=== PATIENT | male | born 1980 | race Caucasian/White ===

== ENCOUNTER → 2017-10-21 10:05 | Outpatient (POV) | payer BC, SELFPAY | PROVIDERS: Visit Provider Otolaryngology | DX: Z00.00 Encounter for general adult medical examination without abnormal findings (principal) ==

== ENCOUNTER 2024-02-13 19:41 | Emergency (ER) | payer BC, SELFPAY ==
[2024-02-13 19:42] VITALS: BP 146/88; PULSE 67; RESP 18; TEMP 36.8; O2SAT 99; BMI 23.6
[2024-02-13 20:00] VITALS: BP 133/86; PULSE 68; RESP 20; O2SAT 98
--- NOTE | 2024-02-13 20:02 | CT_ITS ---
PROCEDURE INFORMATION: Exam: CT Cervical Spine Without Contrast Exam date and time: 02/13/2024 8:10 PM Age: 44 years old Clinical indication: Other: Neurologic symtoms bl ue and le. Triceps atrophy; Prior surgery; Surgery date: 6+ months; Surgery type: 2016 TECHNIQUE: Imaging protocol: Computed tomography of the cervical spine without contrast. Radiation optimization: All CT scans at this facility use at least one of these dose optimization techniques: automated exposure control; mA and/or kV adjustment per patient size (includes targeted exams where dose is matched to clinical indication); or iterative reconstruction. COMPARISON: No relevant prior studies available. FINDINGS: Bones: Straightening of the curvature of the cervical spine is likely positional. Anterior fusion of C5-C7. Hardware appears intact. There is a chronic bony structure adjacent to the right C4-C5 facets. Multilevel degenerative changes of the cervical spine producing multiple levels of mild and moderate spinal canal stenosis. Mild left neural foraminal stenosis at C5-C7. Trachea: Tracheal diverticula. Lungs: Lung apices are normal. Soft tissues: Unremarkable. IMPRESSION: No acute fracture or malalignment of the cervical spine. No evidence of severe spinal stenosis.
--- NOTE | 2024-02-13 20:02 | CT_ITS ---
PROCEDURE INFORMATION: Exam: CT Lumbar Spine Without Contrast Exam date and time: 02/13/2024 8:20 PM Age: 44 years old Clinical indication: Other: Neurologic symtoms bl ue and le. Triceps atrophy TECHNIQUE: Imaging protocol: Computed tomography of the lumbar spine without contrast. Radiation optimization: All CT scans at this facility use at least one of these dose optimization techniques: automated exposure control; mA and/or kV adjustment per patient size (includes targeted exams where dose is matched to clinical indication); or iterative reconstruction. COMPARISON: CT THORACIC SPINE WO CON 13/02/2024 20:17 FINDINGS: Bones/joints: Chronic degenerative changes at L4-L5 produce mild spinal stenosis. Soft tissues: Unremarkable. IMPRESSION: No acute fracture or malalignment of the lumbar spine.
--- NOTE | 2024-02-13 20:02 | CT_ITS ---
PROCEDURE INFORMATION: Exam: CT Thoracic Spine Without Contrast Exam date and time: 02/13/2024 8:17 PM Age: 44 years old Clinical indication: Other: Neurologic symtoms bl ue and le. Triceps atrophy TECHNIQUE: Imaging protocol: Computed tomography of the thoracic spine without contrast. Radiation optimization: All CT scans at this facility use at least one of these dose optimization techniques: automated exposure control; mA and/or kV adjustment per patient size (includes targeted exams where dose is matched to clinical indication); or iterative reconstruction. COMPARISON: CT CERVICAL SPINE WO CON 13/02/2024 20:10 FINDINGS: Bones/joints: No acute fracture. Normal alignment. No significant disc bulge or herniation. No severe spinal canal stenosis. No significant neural foraminal narrowing. Soft tissues: Unremarkable. Gallbladder and biliary ducts: Gallbladder is absent. Kidneys and ureters: Nonobstructing right renal calculus. IMPRESSION: 1. No acute fracture or malalignment of the thoracic spine. No evidence of significant spinal stenosis. 2. Nonobstructing right renal calculus.
--- NOTE | 2024-02-13 20:07 | HMH.EDGENADL ---
Discharge Plan Disposition Patient Disposition: Home, Self-Care Prescriptions Prescriptions: New prednisone 20 mg tablet 60 mg PO DAILY 5 Days Qty: 15 0RF methocarbamol 750 mg tablet 1,500 mg PO TID 5 Days Qty: 30 0RF No Action calcium citrate 200 mg (950 mg) tablet 500 mg PO BID cetirizine [Zyrtec] 10 mg tablet 10 mg PO ONCE cyclobenzaprine 10 mg tablet 10 mg PO Q8H primidone 50 mg tablet 25 mg PO QHS glucosamine-chondroitin [Osteo Bi-Flex] 250-200 mg tablet 2 tab-cap PO QPC Referrals Follow up/Referrals: Myles Macias APRN [Primary Care Provider] - See instructions Activity Restrictions/Add. Instructions Additional Instructions/Restrictions: Follow-up with your family provider for this visit to the emergency department scheduling physical therapy prior to having MRI done. If you have any worsening of your condition or any other concerning signs or symptoms, return to the emergency department or your primary care doctor for further evaluation. Clinical Impressions Clinical Impression: Lumbar radiculopathy, Back pain Instructions Patient Instructions: DI for Low Back Pain Discharge ED Provider: Juve Robbins General Adult HPI General Chief complaint: Back Pain/Injury Stated complaint: back pain/bilateral leg numbness, unknown accident Time Seen by Provider: 02/13/24 19:49 Mode of Arrival: Wheelchair Source of Information: Patient Limitations: No Limitations Description of Symptoms (Recalled from ER Triage Doc. by RN): Patient to ED via wheelchair with complaints of mid to lower back pain that is radiating down left leg. Patient is very tearful during traige and rates pain 10/10. Associated leg cramps that patient self medicates with leg cramp medication, and ibuprofen. Patient previously seen by ortho in [place] for chronic issue x6 months. History of Present Illness HPI narrative: Please note that above description of symptoms, in this electronic medical record under categorization of recalled from ER triage doctor by RN are reflective of an initial nursing assessment, however, is not reflective of my full history and physical exam that was personally taken and clarified. Consequentially, this preceding description of symptoms, which may include the patient's categorized chief complaint in the EMR, do not reflect my personal clinical impression, and the ultimate description of history of present illness and patient stated complaints should be deferred to this section of the note. Unless stated otherwise or congruent with this section of the note, additional signs, symptoms, or incongruence should be interpreted as inaccurate with my clinical impression. Related Data Home Medications Medication Instructions Recorded Confirmed calcium citrate 200 mg (950 mg) 500 mg PO BID 10/10/17 tablet cetirizine 10 mg tablet (Zyrtec) 10 mg PO ONCE 10/10/17 cyclobenzaprine 10 mg tablet 10 mg PO Q8H 10/10/17 glucosamine-chondroitin 250 mg-200 2 tab-cap PO QPC 10/10/17 mg tablet (Osteo Bi-Flex) primidone 50 mg tablet 25 mg PO QHS 10/10/17 Previous Rx's Medication Instructions Recorded methocarbamol 750 mg tablet 1,500 mg (2 x 750 mg) PO TID 5 02/13/24 days #30 tabs prednisone 20 mg tablet 60 mg (3 x 20 mg) PO DAILY 5 days 02/13/24 #15 tabs Allergies Allergy/AdvReac Type Severity Reaction Status Date / Time gabapentin [From Neurontin] Allergy Verified 02/13/24 20:05 Penicillins Allergy Verified 02/13/24 20:05 [facility] Disclaimer: The information contained in this section may have been updated after the patient was seen, as this information can be updated by other users. Social History Smoking Status: Current some day smoker alcohol intake: current alcohol intake frequency: holidays/special occasions only counseling provided: none substance use type: marijuana current occupational status: employed Travel in the last 8 weeks: None household members: family ROS Obtained: Yes All systems reviewed & no additional complaints except as documented Physical Exam General General appearance: alert and in distress (Seem to be mild distress secondary to pain. Tearful) Head Head exam: atraumatic and normocephalic Eye Eye exam: Present normal appearance, PERRL and EOMI ENT ENT exam: Present mucous membranes moist Neck Neck exam: Present normal inspection, full ROM and trachea midline Respiratory Respiratory exam: Absent respiratory distress, wheezes, stridor, accessory muscle use or prolonged expiratory phase Cardiovascular Cardiovascular exam: Present normal rhythm Abdominal Exam Abdominal exam: Present soft; Absent distention, tenderness, guarding, rebound or rigidity Extremities Exam Extremities exam: Present other (Triceps atrophy on the right); Absent edema Back Exam Back exam: Present normal inspection, full ROM and tenderness (Mid thoracic and lumbar spines.) Neurological Exam Neurological exam: Present alert, oriented X3, CN II-XII intact and normal gait; Absent motor sensory deficit Skin Skin exam: Present warm and dry; Absent diaphoresis or erythema Medical Decision Making Medical Records Medical records reviewed: Yes I reviewed the patient's medical records. [place] Inquiry Pt receiving controlled substance: No [place] was queried for this patient: No Vital Signs: 02/13/24 19:42 02/13/24 20:00 02/13/24 20:30 Temperature 98.2 F Temperature Source Oral Pulse Rate 68 67 Pulse Rate [Right] 67 Respiratory Rate 18 20 20 Blood Pressure 133/86 123/82 Blood Pressure [Right Arm] 146/88 H Blood Pressure Mean 101 Blood Pressure Mean [Right Arm] 107 Blood Pressure Source [Right Arm] Automatic Cuff Blood Pressure Position [Right Arm] Supine 02 Sat by Pulse Oximetry 99 98 97 Oxygen Delivery Method Room Air Room Air Room Air 02/13/24 21:05 Temperature Temperature Source Pulse Rate 69 Pulse Rate [Right] Respiratory Rate 20 Blood Pressure 156/98 H Blood Pressure [Right Arm] Blood Pressure Mean Blood Pressure Mean [Right Arm] Blood Pressure Source [Right Arm] Blood Pressure Position [Right Arm] 02 Sat by Pulse Oximetry 100 Oxygen Delivery Method Room Air Lab Data Lab Results 02/13/24 20:30: Urine Color Yellow, Urine Appearance Clear, Urine pH 6.5, Ur Specific [place] 1.020, Urine Protein Negative, Urine Glucose (UA) Negative, Urine Ketones Negative, Urine Blood Negative, Urine Nitrate Negative, Urine Bilirubin Negative, Urine Urobilinogen 0.2, Ur Leukocyte Esterase Negative, Urine RBC None, Urine WBC Occasional, Ur Squamous Epith Cells Occasional, Urine Bacteria None Orders (Tests/Meds): ED MEDICATIONS Discontinued Medications Generic Name Dose Route Start Last Admin Trade Name Mikyq PRN Reason Stop Dose Admin Acetaminophen 1,000 mg 02/13/24 20:02 02/13/24 20:18 Acetaminophen 1,000mg/100ml Vial IV 02/13/24 20:03 1,000 mg ONCE ONE Administration Dexamethasone Sodium Phosphate 10 mg 02/13/24 20:02 02/13/24 20:14 Dexamethasone 4mg/Ml 1ml Vial IV 02/13/24 20:03 10 mg ONCE ONE Administration Ketorolac Tromethamine 15 mg 02/13/24 20:02 02/13/24 20:11 Ketorolac 30mg/Ml Vial IV 02/13/24 20:03 15 mg ONCE ONE Administration Methocarbamol 1,500 mg 02/13/24 20:02 02/13/24 20:11 Methocarbamol 500mg Tablet PO 02/13/24 20:03 1,500 mg ONCE ONE Administration Morphine Sulfate 4 mg 02/13/24 21:01 02/13/24 21:02 Morphine 4mg/Ml Syringe IV 02/13/24 21:02 4 mg ONCE ONE Administration ORDERS Category Date Time Status CT cervical spine wo con Stat Cat Scan 02/13/24 20:[address] lumbar spine wo con Stat Cat Scan 02/13/24 20:[address] thoracic spine wo con Stat Cat Scan 02/13/24 20:02 Completed UA [Urinalysis and Microscopic] Stat Lab 02/13/24 20:30 Completed Medical Decision Narrative: 44-year-old male history of degenerative disc disease, spinal osteoarthritis, chronic neck and back pain, cervical fusion presenting with acute on chronic neck and back pain. He states it has been getting worse over the last 6 months, got worse over the past 4 to 5 days to the point where he could not stand it anymore today. Came to the emergency department for further evaluation. States that he has had x-rays done, has never had CTs done. States that providers have tried giving him pain medications without formal imaging his back. Has never had an MRI. No bowel or bladder dysfunction, but states that both of his legs feel numb, bilateral arms and hands drop, feet invert and spasm, causing him significant discomfort. History was obtained via conversation with patient and . On arrival, patient hemodynamically stable, alert, oriented x4, appropriate, GCS 15, moving all extremities spontaneously, pupils equal and reactive to light. Full physical exam performed and significant for patient is in mild distress secondary to pain. Tearful. Ambulatory, no midline spinal abnormalities. Neurologically intact. He does have decreased sensation bilateral lower extremities without saddle anesthesia. Rectal tone deferred given patient has no history of bowel or bladder dysfunction is able to void spontaneously. Differential includes spinal osteoarthritis, radiculopathy, neuropathy, conus medullaris, cauda equina, among others. Patient was given Decadron, Toradol, acetaminophen, Robaxin for symptomatic management and correction of underlying abnormalities. Workup independently interpreted and significant for. See radiology read for full review of final results. PVR 0. CT scan of the cervical, thoracic, lumbar spines without acute spinal stenosis, bony abnormality, or other acute abnormality to explain patient's pain.On reevaluation, patient having emotional outbursts, lower extremity spasming, but standing up and ambulating in small steps around the room, bending over bed, intermittently putting his hand on his back. Because patient without red flag signs or symptoms and severe pain, admission for pain control was offered, but it was explained that he would not be receiving MRI here given no indication. Patient does not want narcotic medications because he does not think they are helping him. I agree. Patient opting for home-going with steroid and outpatient follow-up. I feel this is appropriate. Because patient at baseline without signs or symptoms of clinical decompensation, deemed appropriate for discharge. Results were relayed to patient who voiced understanding and were agreeable to outpatient management and follow up. I discussed my clinical impression with patient and answered all questions. At this time, the evidence for any other entities in the differential is insufficient to warrant any further testing or ED observation. This was explained as well. Advisory was given that persistent or worsening symptoms require further evaluation. I confirmed the understanding of this discussion. [place] disclaimer Much of this encounter note is an electronic stripper black and white spoken language to printed text. Electronic stripper black and white of the spoken language may permit errors. Although I have reviewed the note, some errors may still exist. Critical Care Critical Care Time Critical Care Time: No
[2024-02-13] MEDS: KETOROLAC 30MG/ML VIAL 15 MG IV (20:11)
[2024-02-13] MEDS: METHOCARBAMOL 500MG TABLET 1500 MG PO (20:11)
[2024-02-13] MEDS: DEXAMETHASONE 4MG/ML 1ML VIAL 10 MG IV (20:14)
[2024-02-13] MEDS: ACETAMINOPHEN 1,000MG/100ML VIAL 1000 MG IV (20:18)
[2024-02-13 20:30] VITALS: BP 123/82; PULSE 67; RESP 20; O2SAT 97
--- NOTE | 2024-02-13 20:39 | PC.NURSE ---
Patient bladder scanned and PVR 0ml.
[2024-02-13 20:48] LABS: Microscopic, Urine URINE MICROSCOPIC (MICROSCOPIC)
--- NOTE | 2024-02-13 20:50 | PC.NURSE ---
TRN enters room to patient moaning, and yelling loudly. He is gripping his left leg stating this is the problem and you all are not fixing it. TRN inquried to further explanation of what was bothering patient at this moment. He states that his left leg is cramping up due to his lower back pain. Patient reports that medication that have previously been given in ER thus far have not been effective. at bedside appears agitated with staff not doing anything for patient pain, and this is the worst its ever been. Dr. Robbins states that he is going to place additional order for morphine to assist with patient pain. Patient and family member updated on plan of care with TREY.
[2024-02-13 20:55] LABS: Appearance,Urine CLEAR (Clear); Bilirubin,Urine Negative (Negative); Blood, Urine Negative (Negative); Color,Urine YELLOW (Yellow); Glucose,Urine (UA) Negative (Negative); Ketones,Urine Negative (Negative); Leukocyte Esterase,Urine Negative (Negative); Nitrate,Urine Negative (Negative); PH,Urine 6.5 (5.0-8.5); Protein,Urine Negative (Negative); Urobilinogen,Urine 0.2 EU/dl (0.2)
[2024-02-13] MEDS: MORPHINE 4MG/ML SYRINGE 4 MG IV (21:02)
[2024-02-13 21:05] VITALS: BP 156/98; PULSE 69; RESP 20; O2SAT 100
[2024-02-13 21:10] LABS: Squamous Epithelial Cell,Urine Occasional #/hpf (0-5); WBC,Urine Occasional #/hpf (0-3)
[2024-02-13 21:31] VITALS: BP 161/137; PULSE 60; O2SAT 96
--- NOTE | 2024-02-13 21:40 | PC.NURSE ---
Physician at bedside.
[2024-02-13 22:04] VITALS: BP 106/53; PULSE 57; RESP 14; TEMP 36.8; O2SAT 97
== END 2024-02-13 22:05 | disposition home or self-care (01) ==
PROVIDERS: Emergency Provider Emergency Medicine; PCP Nurse Practitioner Family
DX: M54.16 Radiculopathy, lumbar region (principal); M54.50 Low back pain, unspecified; M62.838 Other muscle spasm
CPT/HCPCS: 72125; 72128; 72131; 81001; 96374; 96375; 99285; J0131; J1100; J1885; J2270

== ENCOUNTER 2024-03-17 15:48 | Outpatient (CLI) | payer BC, SELFPAY ==
--- NOTE | 2024-03-17 15:58 | MR_ITS ---
PROCEDURE INFORMATION: Exam: MR Lumbar Spine Without and With Contrast Exam date and time: 03/17/2024 4:20 PM Age: 44 years old Clinical indication: Low back pain; Additional info: Lbp TECHNIQUE: Imaging protocol: Magnetic resonance imaging of the lumbar spine without and with contrast. Contrast material: PROHANCE; Contrast volume: 15 ml; Contrast route: IV; COMPARISON: CT LUMBAR SPINE WO CON 02/13/2024 8:20 PM FINDINGS: Bones/joints: T12 vertebral body osseous hemangioma. Lipomatous endplate marrow changes most significant at L5-S1. No fracture. Normal alignment. Spinal cord: Visualized cord, conus medullaris and cauda equina are unremarkable without compression. L1-L2: Disc desiccation. Marginal osteophytosis. Central zone posterior disc protrusion. No significant neural foraminal narrowing or spinal canal stenosis. L2-L3: Disc desiccation. Marginal osteophytosis. Right facet arthrosis. Mild foraminal zone disc bulging. Mild bilateral neural foraminal narrowing. No significant spinal canal stenosis. L3-L4: Disc desiccation. Marginal osteophytosis. Bilateral facet arthrosis. Broad-based right subarticular to right extraforaminal zone disc bulge. Mild narrowing of the right lateral recess. Moderate right and mild left neural foraminal narrowing. No significant spinal canal stenosis. L4-L5: Disc desiccation. Marginal osteophytosis. Bilateral facet arthrosis. Broad-based posterior disc bulge. Narrowing of the lateral recesses. Moderate to severe bilateral neural foraminal narrowing. Mild spinal canal stenosis. L5-S1: Disc desiccation. Bilateral facet arthrosis. Left foraminal zone disc protrusion. Minimal right and moderate left neural foraminal narrowing. No significant spinal canal stenosis. Soft tissues: Unremarkable. IMPRESSION: Multilevel lumbar spondylosis, most significant at L4-L5 with [id number] bilateral neural foraminal narrowing and mild spinal canal stenosis.
--- NOTE | 2024-03-17 15:59 | XR_ITS ---
FINAL REPORT CLINICAL HISTORY: R/O METAL IN EYES FOR MRI COMPARISON: None FINDINGS: ORBITS Look up and look down views were obtained. No fracture is identified. There is mild mucoperiosteal thickening in the left maxillary sinus. No foreign body is identified. IMPRESSION: No radiopaque foreign body is identified in the orbits. Mild mucoperiosteal thickening in the left maxillary sinus. Reviewed, Interpreted and Dictated by Brady Bosch MD Transcribed by Shelly Ortiz Authenticated and [facility]
== END 2024-03-17 23:59 | disposition home or self-care (01) ==
LOC: RAD 15:49
PROVIDERS: PCP Nurse Practitioner; Visit Provider Nurse Practitioner
DX: M54.50 Low back pain, unspecified (principal)
CPT/HCPCS: 70200; 72158; A9576